=== PATIENT | female | born 2000 | race Caucasian/White ===

== ENCOUNTER 2022-06-29 22:44 | Emergency (ER) | payer OTHER, SELFPAY ==
[2022-06-29 22:52] VITALS: PULSE 105; RESP 18; TEMP 36.4; O2SAT 100; BMI 21.9
== END 2022-06-30 00:12 | disposition left against medical advice (07) ==
PROVIDERS: Emergency Provider Emergency Medicine; PCP Nurse Practitioner Family
DX: R10.2 Pelvic and perineal pain (principal); R11.0 Nausea
CPT/HCPCS: 99281